=== PATIENT | male | born 1945 | race Caucasian/White ===

== ENCOUNTER 2016-12-23 21:35 | Emergency (ER) | payer MEDICARE ==
[2016-12-23 21:42] VITALS: RESP 18
[2016-12-23] MEDS ORDERED: methylPREDNISolone SOD SUCCI 125 MG/2 ML VIAL IV STA (22:32)
[2016-12-23] MEDS ORDERED: FAMOTIDINE 20 MG/2 ML VIAL IV STA (22:32)
--- NOTE | 2016-12-23 22:35 | ED ---
General Adult HPI - General Chief complaint: Allergic Reaction Stated complaint: Bee Sting/ Rash/SOB Time Seen by Provider: 12/23/16 22:29 Source: patient, family, RN notes reviewed Mode of arrival: ambulatory Limitations: no limitations - History of Present Illness Initial comments: Patient is a pleasant 71-year-old male presenting to the emergency department following bee sting. Bee sting occurred several hours ago. Patient took 75 mg at approximately 8:45 PM. Patient states he is feeling somewhat better. Patient did feel slightly short of breath however that has resolved. Patient has some swelling of the left side of tongue and lips which is unchanged. Patient did have a pruritic rash which has improved. - Related Data Home Medications Medication Instructions Recorded Confirmed Aspirin EC [Ecotrin Low Dose] 81 mg PO DAILY 12/23/16 12/23/16 Diltiazem Cd [Cardizem Cd] 120 mg PO DAILY 12/23/16 12/23/16 Fluticasone Propionate [Flonase 1 spray EA NOSTRIL DAILY PRN 12/23/16 12/23/16 Allergy Relief] Glimepiride [Amaryl] 2 mg PO AC-BRKFST 12/23/16 12/23/16 Magnesium 200 mg PO DAILY 12/23/16 12/23/16 Multivit-Min/FA/Lycopen/Lutein 1 tab PO DAILY 12/23/16 12/23/16 [Centrum Silver Men Tablet] Pravastatin Sodium [Pravachol] 40 mg PO HS 12/23/16 12/23/16 Ubidecarenone [Co Q-10] 100 mg PO DAILY 12/23/16 12/23/16 Previous Rx's Medication Instructions Recorded predniSONE 20 mg PO BID #10 tab 12/23/16 Allergies Allergy/AdvReac Type Severity Reaction Status Date / Time bee venom protein (honey bee) Allergy Swelling Verified 12/23/16 22:11 oxycodone Allergy Hallucinati Verified 12/23/16 22:11 ons Review of Systems ROS Statement: Those systems with pertinent positive or pertinent negative responses have been documented in the HPI. ROS Other: All systems not noted in ROS Statement are negative. Constitutional: Denies: fever Eyes: Denies: eye pain ENT: Denies: ear pain Respiratory: Reports: dyspnea (Result). Denies: cough Cardiovascular: Denies: chest pain Endocrine: Denies: fatigue Gastrointestinal: Denies: abdominal pain Genitourinary: Denies: dysuria Musculoskeletal: Denies: back pain Skin: Reports: rash Neurological: Denies: weakness Past Medical History Past Medical History: Diabetes Mellitus, Hypertension History of Any Multi-Drug Resistant Organisms: None Reported Past Surgical History: Adenoidectomy, Appendectomy, Heart Catheterization With Stent, Orthopedic Surgery, Tonsillectomy Past Psychological History: No Psychological Hx Reported Smoking Status: Never smoker Past Alcohol Use History: None Reported Past Drug Use History: None Reported General Exam Limitations: no limitations General appearance: alert, in no apparent distress Head exam: Present: atraumatic Eye exam: Present: normal appearance, PERRL ENT exam: Present: other (Patient does have mild to moderate angioedema of the left side of the lower greater than upper lip. No definite angioedema of the tongue. No pharynx swelling.) Neck exam: Present: normal inspection Respiratory exam: Present: normal lung sounds bilaterally. Absent: respiratory distress, wheezes Cardiovascular Exam: Present: regular rate, normal rhythm GI/Abdominal exam: Present: soft. Absent: tenderness, guarding Extremities exam: Present: normal inspection Neurological exam: Present: alert Psychiatric exam: Present: normal affect, normal mood Skin exam: Present: rash (Mild urticarial rash.) Course Vital Signs 12/23/16 12/23/16 21:39 22:00 Temperature 97.3 F L Pulse Rate 82 Respiratory 18 18 Rate Blood Pressure 130/76 O2 Sat by Pulse 94 L Oximetry Medical Decision Making - Medical Decision Making Patient reexamined and improved. Lip swelling is now minimal. No dyspnea. Patient requesting discharge home. Disposition Clinical Impression: Allergic reaction, Angioedema, Hymenoptera reaction Disposition: HOME SELF-CARE Condition: Stable Instructions: Insect Bite or Sting (ED), Angioedema (ED), Urticaria (ED) Additional Instructions: Continue [id number] Benadryl, 50 mg 4 times daily for the next 5 days. Return for increased swelling, difficulty breathing, weakness or passing out, worsening symptoms or other concerns. Prescriptions: predniSONE 20 mg PO BID #10 tab Referrals: Jessica Alex MD [STAFF PHYSICIAN] - 1-2 days Time of Disposition: 23:50
[2016-12-24 00:15] VITALS: BP 147/75; PULSE 79; TEMP 98
== END 2016-12-24 00:11 | disposition home or self-care (01) ==
LOC: EC 21:35
DX: T78.3XXA Angioneurotic edema, initial encounter (principal); T63.441A Toxic effect of venom of bees, accidental (unintentional), initial encounter; E11.9 Type 2 diabetes mellitus without complications; I10 Essential (primary) hypertension; Z79.84 Long term (current) use of oral hypoglycemic drugs; Z79.899 Other long term (current) drug therapy; Z79.82 Long term (current) use of aspirin
CPT/HCPCS: 99283; 96374; 96375; J2930

== ENCOUNTER 2021-02-28 18:58 | Emergency (ER) | payer MEDICARE ==
[2021-02-28 19:40] VITALS: BP 179/78; PULSE 69; RESP 20; TEMP 98.8
--- NOTE | 2021-02-28 20:10 | XR ---
EXAMINATION TYPE: XR foot complete RT DATE OF EXAM: 02/28/2021 COMPARISON: NONE HISTORY: Stepped on a nail TECHNIQUE: 3 views FINDINGS: There is some narrowing and spurring at the first MP joint. There is sharply marginated 12 mm cystic area in the base of the third metatarsal. There is some spurring at the tarsometatarsal walt nts. There is plantar calcaneal spurring. I see no fracture nor dislocation. There is no sign of a ra diopaque foreign body. IMPRESSION: No evidence of a foreign body. Degenerative changes. Cystic lesion in the proximal third metatarsal has benign features.
[2021-02-28] MEDS ORDERED: DIPH,PERTUS(ACELL)TETVAC-LF 0.5 ML VIAL IM ONE (20:50)
[2021-02-28] MEDS ORDERED: LEVOFLOXACIN 750 MG TAB PO STA (20:50)
--- NOTE | 2021-02-28 20:54 | ED ---
Lower Extremity Injury HPI - General Chief Complaint: Extremity Injury, Lower Stated Complaint: stepped on a nail Time Seen by Provider: 02/28/21 20:43 Source: patient Mode of arrival: ambulatory Limitations: no limitations - History of Present Illness Initial Comments: 75-year-old male patient presents to the emergency department today for evaluation of puncture wound to the right foot. Patient states he stepped on a nail that went through his shoe. Patient states this occurred around 3 PM this afternoon. He is unsure when his last tetanus vaccine was. He denies any significant pain. He does have history of diabetes. Denies any other injuries or concerns. - Related Data Home Medications Medication Instructions Recorded Confirmed Aspirin EC [Ecotrin Low Dose] 81 mg PO DAILY 12/23/16 12/23/16 Diltiazem Cd [Cardizem Cd] 120 mg PO DAILY 12/23/16 12/23/16 Fluticasone Propionate [Flonase 1 spray EA NOSTRIL DAILY PRN 12/23/16 12/23/16 Allergy Relief] Glimepiride [Amaryl] 2 mg PO AC-BRKFST 12/23/16 12/23/16 Magnesium 200 mg PO DAILY 12/23/16 12/23/16 Multivit-Min/FA/Lycopen/Lutein 1 tab PO DAILY 12/23/16 12/23/16 [Centrum Silver Men Tablet] Pravastatin Sodium [Pravachol] 40 mg PO HS 12/23/16 12/23/16 Ubidecarenone [Co Q-10] 100 mg PO DAILY 12/23/16 12/23/16 Previous Rx's Medication Instructions Recorded predniSONE [Deltasone] 20 mg PO BID #10 tab 12/23/16 Levofloxacin [Levaquin] 750 mg PO DAILY #5 tab 02/28/21 Allergies Allergy/AdvReac Type Severity Reaction Status Date / Time bee venom protein (honey bee) Allergy Swelling Verified 02/28/21 19:37 oxycodone Allergy Hallucinati Verified 02/28/21 19:37 ons Review of Systems ROS Statement: Those systems with pertinent positive or pertinent negative responses have been documented in the HPI. ROS Other: All systems not noted in ROS Statement are negative. Past Medical History Past Medical History: Diabetes Mellitus, Hypertension History of Any Multi-Drug Resistant Organisms: None Reported Past Surgical History: Adenoidectomy, Appendectomy, Heart Catheterization With Stent, Orthopedic Surgery, Tonsillectomy Past Psychological History: No Psychological Hx Reported Smoking Status: Never smoker Past Alcohol Use History: None Reported Past Drug Use History: None Reported General Exam Limitations: no limitations General appearance: alert, in no apparent distress Respiratory exam: Present: normal lung sounds bilaterally. Absent: respiratory distress, wheezes, rales, rhonchi, stridor Cardiovascular Exam: Present: regular rate, normal rhythm, normal heart sounds. Absent: systolic murmur, diastolic murmur, rubs, gallop, clicks Extremities exam: Present: full ROM, normal capillary refill, other (Puncture noted to the heel of the right foot. No active bleeding. Mild soft tissue swelling. Is otherwise pink, warm, dry. Cap refill less than 3 seconds. Pedal and posttibial pulses 2+.). Absent: normal inspection, tenderness, pedal edema, joint swelling, calf tenderness Neurological exam: Present: alert, oriented X3, CN II-XII intact Psychiatric exam: Present: normal affect, normal mood Skin exam: Present: warm, dry, intact, normal color. Absent: rash Course Vital Signs 02/28/21 19:38 Temperature 98.8 F Pulse Rate 69 Respiratory 20 Rate Blood Pressure 179/78 O2 Sat by Pulse 97 Oximetry Medical Decision Making - Medical Decision Making 75-year-old male patient percents for evaluation of puncture into the right foot. They did step on a nail through his shoe. Physical exam revealed puncture wound with good neurovascular status. We did update his tetanus. Started on Levaquin. He is instructed to follow up with primary care physician for recheck in 1-2 days. Return parameters discussed in detail. He verbalizes understanding and agrees with this plan. My attending is Dr. Sanchez. - Radiology Data Radiology results: report reviewed, image reviewed 3 views of the right foot are obtained. Report is reviewed in its entirety. Impression by Dr. Becerril shows no evidence of a foreign body. Degenerative changes. Cystic lesion in the proximal third metatarsal is benign features. Disposition Clinical Impression: Puncture wound of right foot Disposition: HOME SELF-CARE Condition: Good Instructions (If sedation given, give patient instructions): Puncture Wound (ED) Additional Instructions: Complete and hematocrit prescription and full. Follow-up with primary care physician for recheck in 1-2 days. Return for any new, worsening, or concerning symptoms. Prescriptions: Levofloxacin [Levaquin] 750 mg PO DAILY #5 tab Is patient prescribed a controlled substance at d/c from ED?: No Referrals: None,Stated [Primary Care Provider] - 1-2 days Time of Disposition: 20:54
== END 2021-02-28 21:07 | disposition home or self-care (01) ==
LOC: EC 18:58
DX: S91.331A Puncture wound without foreign body, right foot, initial encounter (principal); E11.9 Type 2 diabetes mellitus without complications; I10 Essential (primary) hypertension; Z23 Encounter for immunization; Z79.82 Long term (current) use of aspirin; Z79.84 Long term (current) use of oral hypoglycemic drugs; Z91.018 Allergy to other foods; Z88.8 Allergy status to other drugs, medicaments and biological substances; W45.0XXA Nail entering through skin, initial encounter
CPT/HCPCS: 90471; 90715; 99283

== ENCOUNTER → 2023-04-29 | Outpatient (CLI) | payer MEDICARE ==
--- NOTE | 2023-05-01 09:19 | MR ---
EXAMINATION TYPE: MR kidney wo con DATE OF EXAM: 04/29/2023 5:58 PM CLINICAL INDICATION:Male, 77 years old with history of N28.1 CYST OF KIDNEY; [facility], [facility] COMPARISON: None TECHNIQUE: Multiplanar multi-sequence imaging was performed without contrast. No contrast was given. IV Contrast: None FINDINGS: LOWER CHEST: No gross irregularity. ABDOMEN Liver: No evidence for hepatic steatosis or cirrhosis. Left hepatic cyst which appears simple. No mer id masses definitively visualized. Gallbladder and Bile ducts: No evidence for ductal dilation, or biliary stricture or evidence of chol edocholithiasis. The gallbladder is within normal limits. Pancreas: No ductal dilation. No evidence for solid mass. Pancreatic tail lesion which is high T2 sig nal measuring 9 x 5 mm. Spleen: Normal for size. Adrenal glands: Unremarkable. Kidneys: No evidence for obstructive uropathy. No suspicious renal masses. r high T2 low T2 signal cy st with thin septations in the right kidney measuring 6.6 x 0.5 cm. No abnormal post contrast-enhance ment. Subcentimeter probable left renal cyst. Stomach and Bowel: No evidence for bowel wall thickening or evidence for obstruction.. Peritoneum: No evidence of pneumoperitoneum or free fluid. Vasculature: No aortic aneurysm. Musculoskeletal: The osseous structures appear intact. Lymph Nodes: No gross evidence for lymphadenopathy. Abdominal wall: Unremarkable. IMPRESSION: 1. Limited exam without IV contrast. There is minimally complex right renal cyst with thin septation . No suspicious solid renal masses. 2. 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 Follow-up in one year recommended to ensure stability.
== END | disposition home or self-care (01) ==
LOC: RADMRIMAIN 16:45
PROVIDERS: ATTEND Family Medicine
DX: N28.1 Cyst of kidney, acquired (principal)
CPT/HCPCS: 74181

== ENCOUNTER → 2023-05-28 | Outpatient (CLI) | payer MEDICARE ==
--- NOTE | 2023-05-28 12:37 | NM ---
EXAMINATION TYPE: NM stress lexiscan cardiolite DATE OF EXAM: 05/28/2023 COMPARISON: NONE CLINICAL INDICATION: Male, 77 years old with history of I25.10 HEART DISEASE; TECHNIQUE: After the intravenous administration of 10.2 mCi Tc 99m Sestamibi - Cardiolite resting SP ECT images acquired 45 minutes post injection. The patient received 0.4mg Lexiscan, 25.0 mCi Tc 99m Sestamibi - Stress images obtained [address] injection FINDINGS: Review of stress and rest SPECT images demonstrates large fixed defect along the inferior wall. Small contiguous area of reversibility along the mid lateral wall. Gated analysis shows poor augmentation of the inferior wall within estimated left ventricular ejection fraction of 62 %. TID calculated at 0.98 within normal limits. IMPRESSION: 1. 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 2. Unable to exclude a small area of yeison-infarct ischemia involving the adjacent mid lateral wall.
--- NOTE | 2023-05-28 12:54 | CA ---
Lexiscan Nuclear Stress Test Report Name: Jhony Allen Exam Date: 05/28/2023 10:15 Exam Location: [facility] Stress Ht (in): 66 Wt (lb): 190 BSA: 1.96 Ordering Phys: Richard Crabtree MD Referring Phys: Stephenie Elena PAC Technologist: Bashir Guerrero Age: 77 Gender: M : 1945 Procedure CPT: Indications: I25.10 heart disease ICD-10 Codes: Patient History: Medications: Meds past 24 hrs: Pretest Chest Pain: STRESS TEST Lexiscan Protocol Exercise Duration (min:sec): 01:[address] Depressions (mm): Angina Score: Cummins Score: Resting HR (bpm): 65 Peak HR (bpm): 88 Resting BP (mmHg): 118 / 70 Peak BP (mmHg): 117 / 64 MPHR: 144 Target HR: 122 % MPHR: 61 METS: 1.0 Total Dose: Peak Dose: Atropine: Double Product: 85263 BP Response: Stress Termination: INFUSION COMPLETE Stress Symptoms: CHEST PAIN "3" Stress Summary: ECG ANALYSIS Resting ECG: Stress ECG: CONCLUSIONS Nonspecific EKG changes in response to Lexiscan Dr. Emilio Mcdermott MD (Electronically Signed) Final Date: 28 May 2023 12:53
== END | disposition home or self-care (01) ==
LOC: RADNMMAIN 08:04
PROVIDERS: ATTEND Family Medicine
DX: I25.10 Atherosclerotic heart disease of native coronary artery without angina pectoris (principal)
CPT/HCPCS: 93017; 78452; A9500

== ENCOUNTER 2023-06-10 05:49 | Day surgery (SDC) | payer MEDICARE ==
[2023-06-09 12:42] VITALS: BMI 30.7
[2023-06-10] MEDS ORDERED: ALPRAZolam 0.25 MG TAB PO PRN (06:01)
[2023-06-10] MEDS ORDERED: ALPRAZolam 0.5 MG TAB PO PRN (06:01)
[2023-06-10] MEDS ORDERED: NITROGLYCERIN SL TABS 0.4 MG TAB SUBLINGUAL PRN (06:01)
[2023-06-10] MEDS ORDERED: ASPIRIN 325 MG TAB PO STA (06:01)
[2023-06-10] MEDS: SODIUM CHLORIDE 0.9% 1,000 ML in EMPTY BAG 1 BAG IV SCH (06:34)
[2023-06-10 06:35] LABS: Basophils % (A) 1 %; Eosinophils # (A) 0.4 k/uL (0-0.7); Eosinophils % (A) 6 %; HCT 44.5 % (39.0-53.0); HGB 14.8 gm/dL (13.0-17.5); Lymphocytes # (A) 1.4 k/uL (1.0-4.8); Lymphocytes % (A) 20 %; MCHC 33.2 g/dL (31.0-37.0); MCV 90.3 fL (80.0-100.0); Mean Platelet Volume 8.7; Monocytes # (A) 0.5 k/uL (0-1.0); Monocytes % (A) 8 %; Neutrophils # (A) 4.5 k/uL (1.3-7.7); Neutrophils % (A) 64 %; Platelet Count 222 k/uL (150-450); RBC 4.93 m/uL (4.30-5.90); RDW 13.3 % (11.5-15.5)
[2023-06-10 06:49] LABS: African American GFR (CKD) 31 (>60 ml/min/1.73 sqM); Anion Gap 8 mmol/L; Blood Urea Nitrogen 34 mg/dL (9-20); Calcium 9.2 mg/dL (8.4-10.2); Carbon Dioxide 21 mmol/L (22-30); Chloride 110 mmol/L (98-107); Glucose 112 mg/dL (74-99); Non-African American GFR(CKD) 26 (>60 ml/min/1.73 sqM); Potassium 4.5 mmol/L (3.5-5.1); Sodium 139 mmol/L (137-145)
[2023-06-10 07:04] VITALS: RESP 18; TEMP 98
[2023-06-10] MEDS ORDERED: fentaNYL (PF) 50 MCG/ML 2 ML AMP ONE (07:42)
[2023-06-10] MEDS ORDERED: HEPARIN SODIUM 1,000 UN/ML (10ML VL) ONE (07:42)
[2023-06-10] MEDS: MIDAZOLAM 2 MG/2 ML VIAL IVP ONE (07:54)
[2023-06-10] MEDS: fentaNYL (PF) 50 MCG/ML 2 ML AMP IVP ONE (07:54)
[2023-06-10] MEDS: LIDOCAINE 1% INJ 10MG/ML (5 ML VIAL-PF) SQ ONE (07:55)
[2023-06-10] MEDS: VERAPAMIL SYRINGE (5 MG/10 ML) INTRAARTER ONE ×2 (07:57→07:58)
[2023-06-10] MEDS: HEPARIN SODIUM 1,000 UN/ML (10ML VL) IV ONE (08:00)
[2023-06-10] MEDS: IOPAMIDOL-370 100ML BTL INJ ONE (08:13)
[2023-06-10] MEDS: SODIUM CHLORIDE 0.9% 1,000 ML IV ONE (08:18)
--- NOTE | 2023-06-10 09:10 | CC ---
CARDIAC CATHETERIZATION REPORT INDICATION: This is a 77-year-old gentleman with history of coronary artery disease, status post angioplasty with stent placement of LAD, chronic renal insufficiency with glomerular filtration rate of around 21, who recently underwent a stress test at the hospital that suggested that the patient may have a reversible perfusion defect involving lateral wall. Due to this, the patient was advised to undergo cardiac catheterization. The patient's predominant symptom was in the form of fatigue and tiredness, which we thought might be anginal equivalent. The patient and the told me that his symptoms are very similar to the ones that he had prior to previous angioplasty. The patient understood the risk of contrast-induced nephropathy including kidney failure and need for dialysis. He follows with a strength and conditioning coach and I discussed with her over phone after my consultation. His creatinine today is 2.32, and I hydrated him prior to catheterization. PROCEDURE NOTE: After obtaining informed consent, left heart catheterization and coronary angiogram were performed via the right radial artery using standard Ariana catheters. The patient tolerated the procedure well without any obvious immediate complications. A TR band was used for hemostasis. The patient received moderate conscious sedation. Total sedation time was 18 minutes. We used less than 70 cc of the contrast as the contrast threshold is 75 cc. Right radial artery access was obtained using Seldinger technique, 6-Bahamian sheath was placed. Catheters and wires were floated into the ascending aorta under fluoroscopic guidance. The patient received verapamil and heparin per protocol. FINDINGS: 1. Hemodynamics: Left ventricular end-diastolic pressure is 16 mm. There is no significant gradient across the aortic valve. 2. Left ventriculogram: Left ventriculogram is not performed. 3. Angiographic data: a.Right coronary artery: Right coronary artery is a large dominant vessel that shows sluggish flow without significant focal hemodynamically significant lesions. b.Left main coronary artery appears calcified, but is free of significant stenosis. Divides into left anterior descending coronary artery and circumflex coronary artery. Circumflex coronary artery gives off a high OM branch that have 30% to 40% stenosis. The LAD shows mild to moderate nonobstructive nonfocal disease with a patent stent with 30% to 40% in-stent restenosis. CONCLUSIONS: Patent stent within the LAD. No significant obstructive disease involving circumflex coronary artery. PLAN: The patient's stress test is probably a false-positive stress test and his management is going to be in the form of aggressive risk factor modification. MMODL / IJN: [id number] /
[2023-06-10 14:03] VITALS: BP 112/62; PULSE 5
== END 2023-06-10 13:20 | disposition home or self-care (01) ==
LOC: CATHCVL 05:49
PROVIDERS: ATTEND Internal Medicine Cardiovascular Disease
DX: I25.10 Atherosclerotic heart disease of native coronary artery without angina pectoris (principal); R93.1 Abnormal findings on diagnostic imaging of heart and coronary circulation; N18.6 End stage renal disease; I10 Essential (primary) hypertension; E11.9 Type 2 diabetes mellitus without complications; E78.5 Hyperlipidemia, unspecified; Z82.49 Family history of ischemic heart disease and other diseases of the circulatory system; Z79.82 Long term (current) use of aspirin; Z79.85 Long-term (current) use of injectable non-insulin antidiabetic drugs; Z79.899 Other long term (current) drug therapy; Z95.5 Presence of coronary angioplasty implant and graft
CPT/HCPCS: 93458; 80048; 85025; C1769; C1894; J2250; J2001; J3010; J1644; Q9967

== ENCOUNTER → 2023-06-12 | Outpatient (CLI) | payer MEDICARE ==
[2023-06-12 11:32] LABS: African American GFR (CKD) 30 (>60 ml/min/1.73 sqM); Anion Gap 5 mmol/L; Blood Urea Nitrogen 32 mg/dL (9-20); Carbon Dioxide 24 mmol/L (22-30); Chloride 109 mmol/L (98-107); Non-African American GFR(CKD) 26 (>60 ml/min/1.73 sqM); Sodium 138 mmol/L (137-145)
== END | disposition home or self-care (01) ==
LOC: LABWHC1 10:30
PROVIDERS: ATTEND Internal Medicine Cardiovascular Disease
DX: Z00.00 Encounter for general adult medical examination without abnormal findings (principal)
CPT/HCPCS: 36415; 80051; 82565; 84520

== ENCOUNTER → 2023-09-20 | Outpatient (CLI) | payer MEDICARE ==
[2023-09-20 12:59] LABS: African American GFR (CKD) 25 (>60 ml/min/1.73 sqM); Albumin 3.8 g/dL (3.5-5.0); Anion Gap 14 mmol/L; Blood Urea Nitrogen 45 mg/dL (9-20); Calcium 8.9 mg/dL (8.4-10.2); Carbon Dioxide 14 mmol/L (22-30); Chloride 109 mmol/L (98-107); Glucose 136 mg/dL (74-99); Non-African American GFR(CKD) 22 (>60 ml/min/1.73 sqM); Potassium 5.2 mmol/L (3.5-5.1); Sodium 137 mmol/L (137-145)
== END | disposition home or self-care (01) ==
LOC: LABWHC1 11:50
PROVIDERS: ATTEND Family Medicine
DX: N18.4 Chronic kidney disease, stage 4 (severe) (principal)
CPT/HCPCS: 36415; 80069

== ENCOUNTER → 2023-10-02 | Outpatient (CLI) | payer MEDICARE ==
[2023-10-02 15:54] LABS: % Iron Saturation 22.04 (15.00-50.00); Albumin 3.8 g/dL (3.8-4.9); BUN/Creat Ratio 16.33 Ratio (12.00-20.00); Blood Urea Nitrogen 34.3 mg/dL (9.0-27.0); Calcium 9.5 mg/dL (8.7-10.3); Carbon Dioxide 23.7 mmol/L (21.6-31.8); Chloride 106 mmol/L (96-109); Glucose 139 mg/dL (70-110); Iron 67 UG/DL (65-175); Magnesium 2.2 mg/dL (1.5-2.4); Phosphorus 3.8 mg/dL (2.4-5.1); Potassium 4.9 mmol/L (3.5-5.5); Sodium 139 mmol/L (135-145); Total Iron Binding Capacity 304 UG/DL (228-460)
[2023-10-02 16:00] LABS: Basophils # (A) 0.06 X 10*3/uL (0.00-0.10); Eosinophils # (A) 0.35 X 10*3/uL (0.04-0.35); Eosinophils % (A) 5.7 %; HGB 15.6 g/dL (13.0-17.0); Lymphocytes # (A) 1.05 X 10*3/uL (0.90-5.00); MCH 28.9 pg (27.0-32.0); MCHC 31.8 g/dL (32.0-37.0); MCV 90.9 FL (80.0-97.0); Mean Platelet Volume 11.6 FL (9.5-12.2); Monocytes # (A) 0.79 X 10*3/uL (0.20-1.00); Monocytes % (A) 12.8 %; NRBC Per 100 WBC 0 X 10*3/uL (0.00-0.01); Neutrophils # (A) 3.92 X 10*3/uL (1.80-7.70); Neutrophils % (A) 63.2 %; Platelet Count 221 X 10*3/uL (140-440); RBC 5.39 X 10*6/uL (4.40-5.60); RDW 13.1 % (11.5-14.5); WBC 6.19 X 10*3/uL (4.50-10.00)
[2023-10-02 16:22] LABS: Appearance,Urine Clear (Clear); Bilirubin,Urine Negative (Negative); Blood,Urine Trace (Negative); Color,Urine Yellow (Yellow); Ketones,Urine Negative (Negative); Nitrite,Urine Negative (Negative); Specific Gravity,Urine 1.015 (1.001-1.030); Urobilinogen,Urine 0.2 E.U./DL
[2023-10-02 16:34] LABS: Bacteria,Urine None Seen (None Seen)
[2023-10-02 23:29] LABS: Urine Creatinine 78.2 mg/dL (39.0-259.0)
== END | disposition home or self-care (01) ==
LOC: LABWHC1 08:13
PROVIDERS: ATTEND Nurse Practitioner Family
DX: N18.32 Chronic kidney disease, stage 3b (principal); D63.1 Anemia in chronic kidney disease; M10.9 Gout, unspecified; N25.81 Secondary hyperparathyroidism of renal origin; E55.9 Vitamin D deficiency, unspecified; R80.9 Proteinuria, unspecified
CPT/HCPCS: 36415; 80048; 81001; 82040; 82043; 82306; 82570; 82728; 83540; 83550; 83735; 83970; 84100; 84550; 85025

== ENCOUNTER → 2023-10-16 | Outpatient (CLI) | payer MEDICARE ==
[2023-10-16 09:33] LABS: African American GFR (CKD) 28 (>60 ml/min/1.73 sqM); Anion Gap 5 mmol/L; Blood Urea Nitrogen 37 mg/dL (9-20); Calcium 8.8 mg/dL (8.4-10.2); Carbon Dioxide 22 mmol/L (22-30); Chloride 111 mmol/L (98-107); Glucose 120 mg/dL (74-99); Non-African American GFR(CKD) 24 (>60 ml/min/1.73 sqM); Potassium 4.7 mmol/L (3.5-5.1); Sodium 138 mmol/L (137-145)
== END | disposition home or self-care (01) ==
LOC: LABWHC1 08:34
PROVIDERS: ATTEND Internal Medicine Nephrology
DX: N18.32 Chronic kidney disease, stage 3b (principal)
CPT/HCPCS: 36415; 80048

== ENCOUNTER → 2023-10-28 | Outpatient (CLI) | payer MEDICARE ==
[2023-10-29 02:39] LABS: BUN/Creat Ratio 15.24 Ratio (12.00-20.00); Blood Urea Nitrogen 38.1 mg/dL (9.0-27.0); Calcium 9.9 mg/dL (8.7-10.3); Carbon Dioxide 19.4 mmol/L (21.6-31.8); Chloride 106 mmol/L (96-109); Glucose 107 mg/dL (70-110); Potassium 4.6 mmol/L (3.5-5.5); Sodium 139 mmol/L (135-145)
== END | disposition home or self-care (01) ==
LOC: LABWHC1 15:58
PROVIDERS: ATTEND Nurse Practitioner Family
DX: N18.32 Chronic kidney disease, stage 3b (principal)
CPT/HCPCS: 36415; 80048

== ENCOUNTER → 2023-11-03 | Outpatient (CLI) | payer MEDICARE ==
--- NOTE | 2023-11-03 11:24 | FL ---
COMPARISON: NONE DATE OF EXAM: 11/03/2023 HISTORY: Dysphasia A number of thin and thick substances were ingested under the care of the department of speech pathol ogy. There is no evidence of aspiration or penetration. There is no evidence of obstruction. DAP are not provided. 52 seconds of fluoroscopy. IMPRESSION: 1. No evidence of aspiration or penetration.
== END | disposition home or self-care (01) ==
LOC: RADFLMAIN 10:49
PROVIDERS: ATTEND Otolaryngology
DX: R13.13 Dysphagia, pharyngeal phase (principal)
CPT/HCPCS: 74230

== ENCOUNTER → 2024-07-22 | Outpatient (CLI) | payer MEDICARE ==
--- NOTE | 2024-07-22 10:14 | US ---
EXAMINATION TYPE: US venous doppler duplex LE RT DATE OF EXAM: 07/22/2024 10:08 AM COMPARISON: NONE CLINICAL INDICATION: Male, 78 years old with history of RLE; M79.604 PAIN IN RIGHT LEG; rt leg pain x 3 days, no longer having pain, Pain TECHNIQUE: The lower extremity deep venous system is examined utilizing real time linear array sonog jovanna with graded compression, color doppler sonography, and spectral doppler. SIDE PERFORMED: Right FINDINGS: VESSELS IMAGED: Common Femoral Vein Deep Femoral Vein Greater Saphenous Vein * Femoral Vein Popliteal Vein Small Saphenous Vein * Proximal Calf Veins (* superficial vessels) Right Leg: Negative for DVT, Color Doppler imaging shows patency of the vessels. Spectral waveforms are within normal limits. IMPRESSION: No ultrasound evidence for deep venous thrombosis. [facility], , 07/22/2024 10:12 AM
== END | disposition home or self-care (01) ==
LOC: RADUSWWP 09:42
PROVIDERS: ATTEND Family Medicine
DX: M79.604 Pain in right leg (principal)